=== PATIENT | female | born 1965 | race Caucasian/White ===

== ENCOUNTER → 2017-10-19 | Outpatient (CLI) | payer OTHER | LOC: M.RAD 11:50 | DX: M47.896 Other spondylosis, lumbar region (principal); M54.6 Pain in thoracic spine; G89.29 Other chronic pain ==

== ENCOUNTER → 2017-12-11 | Outpatient (CLI) | payer OTHER | LOC: M.RAD 13:15 | DX: Z12.31 Encounter for screening mammogram for malignant neoplasm of breast (principal) ==

== ENCOUNTER → 2018-12-11 | Outpatient (CLI) | payer OTHER | LOC: M.RAD 13:33 | DX: Z12.31 Encounter for screening mammogram for malignant neoplasm of breast (principal) ==

== ENCOUNTER → 2019-06-04 | Outpatient (CLI) | payer OTHER ==
--- NOTE | 2019-06-06 14:24 | EEG ---
[address] [address] EEG STUDY REPORT Name: ALIREZA SÁNCHEZ Room: [facility].#: [id number] Admission: 06/04/19 Attend Phys: Bruno Desouza Discharge: Date of : 65 Report #: [id number] THIS REPORT FOR: //name// CC: Martha Woodard DATE OF SERVICE: 06/04/2019 This patient is being evaluated for an episode of syncope. EEG was done by placing the electrode by standard 10-20 system of electrode placement. Both referential and sequential montages were used for recording. Background activity in this patient's EEG is 11 Hz and 40 microvolt. It is a symmetrical activity. The patient went to sleep that is associated with bilaterally symmetrical sleep spindle and vertex sharp waves. Photic stimulation is unremarkable. Throughout the record, no active epileptiform activity was noticed. IMPRESSION: This patient's EEG is within normal limits. Thank you very much for this referral. <ELECTRONICALLY SIGNED> By: Eduin Mcdaniels MD 06/06/19 1424 [id number] Mcdaniels MD /nt
== END ==
LOC: M.CRD 10:13 → M.MRI 11:30
DX: R55 Syncope and collapse (principal)

== ENCOUNTER → 2020-12-16 | Outpatient (CLI) | payer OTHER | LOC: M.RAD 08:19 | PROVIDERS: ATTEND Family Medicine | DX: Z12.31 Encounter for screening mammogram for malignant neoplasm of breast (principal) ==